=== PATIENT | female | born 1950 | race Caucasian/White ===

== ENCOUNTER → 2021-07-28 02:13 | Outpatient (CLI) | payer MEDICARE, SELFPAY ==
[2021-07-28 16:40] LABS: SARS-CoV-2 RNA PCR Negative
== END ==
PROVIDERS: PCP Internal Medicine; Visit Provider Internal Medicine
DX: J01.90 Acute sinusitis, unspecified (principal); Z20.822 Contact with and (suspected) exposure to COVID-19
CPT/HCPCS: C9803; U0003; U0005

== ENCOUNTER 2023-06-02 13:58 | Observation (INO) | payer MEDICARE, SELFPAY ==
[2023-06-02] VITALS (9 sets, daily range): BP systolic 107–156; BP diastolic 50–72; PULSE 71–90; RESP 15–30; TEMP 37.1–38.3; O2SAT 92–99; BMI 24.7
--- NOTE | ~2023-06-02 | CT_ITS ---
EXAMINATION: CT brain wo con DATE: 06/02/2023 15:26 INDICATION: syncope last week, unknown HI . TECHNIQUE: Computed tomography (CT) of the head was performed without intravenous contrast. The mA wa s adjusted according to patient size. Iterative reconstruction technique was employed. The dose-lengt h product was 605.33 mGy-cm. COMPARISON: None. FINDINGS: No acute intracranial hemorrhage or extra-axial fluid collection. No hydrocephalus, mass, or herniation. No acute ischemic infarct. Unremarkable dural venous sinus attenuation. No acute osseous abnormality. The aerated spaces are clear. Mild atrophy and chronic white matter change. Atherosclerotic intracranial calcification. IMPRESSION: No acute intracranial process. Reviewed, dictated and finalized at location K.
--- NOTE | ~2023-06-02 | CT_ITS ---
EXAMINATION: CT abdomen pelvis w con DATE: 06/02/2023 15:26 INDICATION: uti sx's, lower abd/back pain, fever TECHNIQUE: Computed tomography (CT) of the abdomen and pelvis was performed with 100 mL Omnipaque-350 intravenous contrast. Automated exposure control and iterative reconstruction technique were employe d. The dose-length product was 530.70 mGy-cm. COMPARISON: None. FINDINGS: Lower thorax: Unremarkable Liver: Normal. Biliary/Gallbladder: Gallbladder is normal. No bile duct dilation. Pancreas: No mass or duct dilation. Spleen: Normal. Adrenals:No mass. Kidneys: Subtle patchy areas of hypoenhancement bilaterally. Bilateral simple cysts and hypodensities that are too small to characterize but also likely represent cysts. Mild bilateral urothelial enhanc ement. GI tract: Small hiatal hernia. Mild distal esophageal and gastric wall edema. No small or large bowel dilation. Status post appendectomy. Diverticulosis without diverticulitis. Mesentery/Peritoneum: No ascites, mass, or free air. Retroperitoneum: No mass. Atherosclerotic abdominal aortic and/or arterial calcifications. 2.6 cm fus iform area of ectasia of the infrarenal abdominal aorta. Pelvis: Mild urinary bladder wall thickening/edema. Absent uterus. Bilateral ovaries not confidently identified. Soft Tissues: Soft tissues and body wall unremarkable. Bones: No acute osseous finding. IMPRESSION: Mild esophagitis/gastritis. Likely cystitis with possible ascending infection and bilateral pyelonephritis. Reviewed, dictated and finalized at location K.
--- NOTE | 2023-06-02 14:06 | ED.FEMALEGU ---
HPI - Female Genitourinary General Chief complaint: Urogenital-Female <Juju Tavera PA-C - Last Filed: 06/02/23 16:37> Stated complaint: uti, fever <Juju Tavera PA-C - Last Filed: 06/02/23 16:37> Time Seen by Provider: 06/02/23 14:02 <Juju Tavera PA-C - Last Filed: 06/02/23 16:37> Source: patient <SAHIL Blackwood Last Filed: 06/02/23 16:37> Mode of arrival: EMS <SAHIL Blackwood Last Filed: 06/02/23 16:37> Limitations: no limitations <SAHIL Blackwood Last Filed: 06/02/23 16:37> History of Present Illness HPI Narrative: Patient is a 72-year-old female who presents the ED via EMS with report of UTI sx's. Patient reports she was recently switched from Lasix to Sotagliflozin 2 weeks ago, 05/20, by her aircraft dispatcher d/t fluid around her heart. She began having urinary frequency, urgency, dysuria, lower abdominal pain/pressure later that week. Sx's have persisted. Patient reports worsening pain, pain across her lower back, continued urinary sx's, fatigue, weakness, chills/rigors, lightheadedness, nausea. Denies vomiting. Denies known fevers. She has not been evaluated for these symptoms. She does also admit that she had a syncopal episode last week and fell in her garage. Unknown HI/LOC. Denies injury from the episode. <Juju Tavera PA-C - Last Filed: 06/02/23 16:37> Related Data Allergies/Adverse reactions: Allergies Allergy/AdvReac Type Severity Reaction Status Date / Time codeine Allergy Unknown Unknown Verified 06/02/23 14:06 <SAHIL Blackwood Last Filed: 06/02/23 16:37> Review of Systems Review of Systems: CONSTITUTIONAL: See HPI. CARDIOVASCULAR: Denies chest pain. RESPIRATORY: Denies dyspnea. GASTROINTESTINAL: See HPI. GENITOURINARY: See HPI. MUSCULOSKELETAL: Reports lower back pain. NEUROLOGIC: See HPI. <Juju Tavera PA-C - Last Filed: 06/02/23 16:37> All systems reviewed & are unremarkable except as noted in HPI and below <Juju Tavera PA-C - Last Filed: 06/02/23 16:37> PMFSH Past Medical History Medical History: Medical History (Updated 06/02/23 @ 18:31 by Marilynn Trinidad PA-C) Anxiety Congestive heart failure Hyperlipidemia Hypertension <Juju Tavera PA-C - Last Filed: 06/02/23 16:37> Social History Social History: Social History (Updated 06/02/23 @ 18:20 by Marilynn Trinidad PA-C) Social History: Surrogate medical decision maker: Code status: Full code. <Juju Tavera PA-C - Last Filed: 06/02/23 16:37> Exam Narrative: GENERAL: Mildly ill appearing, well-nourished, non-toxic, in no acute distress. HEAD: Normocephalic, atraumatic. EYES: PERRL/EOMI NECK: Normal ROM, nonpainful. RESPIRATORY: Airway patent, respirations nonlabored. Clear to auscultation bilaterally, no rales, rhonchi, wheezing. CARDIOVASCULAR: Borderline tachycardic with regular rhythm without murmurs, rubs, or gallops. ABDOMINAL: Soft, diffuse tenderness throughout lower abdomen, nondistended. Normoactive BS. MUSCULOSKELETAL: Moves all extremities. No gross deformities. Tenderness throughout lumbar region. SKIN: Warm, dry, normal color. Mildly flushed appearing. NEURO: A&O X3. Speech clear. Cranial nerves II-XII grossly intact. Steady gait. No ataxic movements. No focal deficits. PSYCHIATRIC: Appropriate mood and affect. Normal interaction. <Juju Tavera PA-C - Last Filed: 06/02/23 16:37> Course JEWEL SAWYER/PA Physician Supervision For this patient encounter, I reviewed the JEWEL SAWYER or PA documentation, treatment plan, and medical decision making; and I had [id number] time with this patient. <Sterling Moe MD - Last Filed: 06/02/23 19:59> Vital Signs Vital signs: Vital Signs Temperature 101.0 F H 06/02/23 13:58 Pulse Rate 90 06/02/23 13:58 Respiratory Rate 22 H 06/02/23 13:58 Blood Pressure 156/72 H
[2023-06-02] MEDS: ONDANSETRON INJ 4 MG/2 ML VIAL IV PUSH ×2 (14:29→23:07)
[2023-06-02] MEDS: ACETAMINOPHEN 500 MG TABLET 1000 MG PO (14:29)
[2023-06-02] MEDS: SODIUM CHLORIDE 0.9% IV 1,000 ML 999 ML IV CONT (14:29)
[2023-06-02 14:30] LABS: Appearance Urine Clear (Clear); Bacteria Urine 2+ /hpf; Bilirubin Urine Negative (Negative); Blood Urine Non-Hemolyzed Trace (Negative); Color Urine Yellow (Yellow); Glucose Urine UA Negative (Negative); Ketones Urine Negative (Negative); Leukocyte Esterase Ur Trace LEU/UL (Negative); Nitrate Urine Negative (Negative); Non Pathogenic Casts 0-2; Protein Urine Negative (Negative); Specific Grav Ur 1.009 (1.001-1.035); Squamous Epithelial Cell Urine None Seen /hpf (Few); Urobilinogen Urine 0.2 mg/dL (<2.0)
[2023-06-02 14:51] LABS: Add Urine Microscopic? YES
[2023-06-02 14:56] LABS: Basophils Percent Auto 0.2 % (0.2-1.2); Eosinophils Percent Auto 0.4 % (0-4.4); Hematocrit 40.9 % (37.0-47.0); Hemoglobin 13.4 g/dL (12.0-15.0); Immature Granulocyte Absolute 0.02 K/mm3 (0.00-0.031); Immature Granulocyte Percent A 0.2 % (0-0.5); Lymphocytes Percent Auto 9.7 % (18.3-44.2); Mean Corpuscular HGB Conc 32.8 g/dl (32-36); Mean Corpuscular Hemoglobin 30.7 pg (26-34); Mean Corpuscular Volume 93.6 fl (80-100); Mean Platelet Volume 10.1 fl (7.4-10.4); Monocytes Absolute Auto 0.6 K/mm3 (0.1-0.6); Monocytes Percent Auto 7.2 % (2.6-8.5); Neutrophils Absolute Auto 6.8 K/mm3 (1.3-6.7); Neutrophils Percent Auto 82.3 % (45.5-73.1); Platelet Count Result 197 k/mm3 (150-375); Red Blood Count 4.37 M/mm3 (4.2-5.4); Red Cell Distribution Width 12.5 % (11.5-14.5); White Blood Count 8.2 K/mm3 (4.5-10.0)
[2023-06-02 15:06] LABS: Alanine Aminotransferase 16 U/L (6-35); Alkaline Phosphatase 61 U/L (38-126); Anion Gap 4 mmol/L (4-12); Aspartate Amino Transferase 21 U/L (14-36); Bilirubin,Total 0.7 mg/dL (0.2-1.3); Blood Urea Nitrogen 16 mg/dL (7-17); Carbon Dioxide 32 mmol/L (22-30); Chloride 98 mmol/L (98-107); Estimated CRCL calculation 55 ml/min; Estimated Glomerular Filt Rate > 60; Glucose 118 mg/dL (65-110); Potassium 4.2 mmol/L (3.4-5.0); Sodium 134 mmol/L (137-145)
--- NOTE | 2023-06-02 15:22 | PC.NURSE ---
Pt to CT scan via stretcher.
[2023-06-02 16:19] LABS: Influenza A QL RT-PCR Negative (Negative); Influenza B QL RT-PCR Negative (Negative); RSV RNA, RT-PCR Negative (Negative); SARS-CoV-2 RNA PCR Negative (Negative)
--- NOTE | 2023-06-02 18:11 | PM.IMHP ---
H&P: HPI History of Present Illness Date/Time: 06/02/23 18:30 Chief Complaint: Fever and urinary symptoms. Narrative: This is a 72-year-old female with hypertension, hyperlipidemia, congestive heart failure, and anxiety who presented to the emergency department via EMS from home for evaluation of fever and urinary symptoms. The patient provides the following history. She was started on sotagliflozin 2 weeks ago by her chlorine cells operator. Not long after starting the medication she developed urinary symptoms to include frequency, urgency, and dysuria. In the last week she developed pressure-like pain throughout her lower abdomen and lower back. She has since stopped taking drug but she continues feel poorly and is now weak, fatigued, nauseated, and is having episodes of chills/rigors. She also mentions having a syncopal episode last Saturday. She exited her garage to take out the trash and when she was walking back towards how she became extremely lightheaded and dizzy and woke up on the concrete in a supine position. She was lightheaded and dizzy for several minutes thereafter so she lay on the ground until the symptoms passed. Luckily she did not sustain any injuries. Since that time she has been wearing an event monitor ordered by her chlorine cells operator, Dr. Romero. Is my understanding that she had a recent stress test and echocardiogram which she believes were unchanged. She denies current lightheadedness, dizziness, cold and flu symptoms, chest pain, pleuritic pain, palpitations, vomiting, and diarrhea. In the ED: Temperature was 101 ? F on arrival with stable blood pressures. Labs were significant for WBC count of 8.2, hemoglobin 13.4, sodium 134, potassium 4.2, creatinine 0.70, lactic acid 1.0, glucose 118. Urine was positive for trace blood, 3 to 5 RBC, 11 to 20 WBC, trace leukocyte esterase, and 2+ bacteria. She was negative for influenza, RSV, and COVID. Brain CT showed no acute intracranial process. CT of the abdomen and pelvis showed mild esophagitis/gastritis and likely cystitis with possible ascending infection and bilateral pyelonephritis. She was given a dose of ceftriaxone and is being admitted in this setting for further treatment. Review of Systems Review of Systems: 12 systems were reviewed and are negative except for as per HPI. [facility] Past Medical History Medical History (Updated 06/02/23 @ 23:25 by Marilynn Trinidad PA-C) Anxiety Aortic aneurysm Congestive heart failure Gastroesophageal reflux disease Hyperlipidemia Hypertension Kidney stones Surgical History Surgical History (Updated 06/02/23 @ 23:25 by Marilynn Trinidad PA-C) History of bilateral cataract extraction History of bilateral knee arthroplasty History of cardiac catheterization History of colonoscopy with polypectomy Family History Family History (Updated 06/02/23 @ 23:25 by Marilynn Trinidad PA-C) Other Family history non-contributory Social History Social History (Updated 06/02/23 @ 23:26 by Marilynn Trinidad PA-C) Social History: Surrogate medical decision maker: Toña Hoskins, daughter. Code status: Full code. Smoking status: Former smoker Additional smoking assessment comments: quit 17 years ago Alcohol intake: never Substance use: never Do You Feel Safe in your Home?: Yes Lack of Transportation: No Lack of Food: Never True Current Housing: I Have Housing Concerned About Future Housing: No Difficulty Paying Gas/Electric Bills: No Difficulty Paying for Meds: No Currently Unemployed: No Education: High School Diploma/GED Difficulty w/ Childcare or Family Care: No Spiritual care concerns: No Meds Home Medications and Allergies Home Medications Medication Instructions Recorded Confirmed Type aspirin 81 mg tablet 81 mg PO DAILY 06/02/23 06/02/23 History atorvastatin 40 mg tablet 40 mg PO DAILY 06/02/23 06/02/23 History carvedilol 6.25 mg tablet 6.25 mg PO BID 06/02/23 06/02/23 History furosemide
--- NOTE | 2023-06-02 18:38 | ADMGEN ---
This patient, Lelo Pritchard, was admitted to Virtual Bed 3rd Floor-2. Patient/family oriented to hospital policies and general routines including ID bracelet, bed and alarms, visiting hours, pain management, procedures, bathroom and other care routines, personal items, smoking policy, room service/diet, and visiting hours. Information on how to activate the Rapid Response Team has been discussed. Patient/Family are encouraged to report perceived risks to care and to ask questions if they do not understand what they are told or what they should do.
--- NOTE | 2023-06-02 20:20 | ADMGEN ---
This patient, Lelo Pritchard, was admitted to Medical Room 252-01. Patient/family oriented to hospital policies and general routines including ID bracelet, bed and alarms, visiting hours, pain management, procedures, bathroom and other care routines, personal items, smoking policy, room service/diet, and visiting hours. Information on how to activate the Rapid Response Team has been discussed. Patient/Family are encouraged to report perceived risks to care and to ask questions if they do not understand what they are told or what they should do.
[2023-06-02] MEDS: ACETAMINOPHEN 325 MG TABLET 650 MG PO (23:10)
[2023-06-03 00:25] VITALS: PULSE 85
[2023-06-03] MEDS: SODIUM CHLORIDE 0.9% IV 500 ML 75 ML IV CONT (00:25)
[2023-06-03] MEDS: carvediloL 6.25 MG TABLET PO ×3 (00:25→21:07)
[2023-06-03 04:09] VITALS: BP 125/58; PULSE 77; RESP 17; TEMP 37.3; O2SAT 93
[2023-06-03 05:44] LABS: Basophils Percent Auto 0.3 % (0.2-1.2); Eosinophils Percent Auto 0.4 % (0-4.4); Hematocrit 37.4 % (37.0-47.0); Immature Granulocyte Absolute 0.03 K/mm3 (0.00-0.031); Immature Granulocyte Percent A 0.4 % (0-0.5); Lymphocytes Absolute Auto 1.24 K/mm3 (0.9-3.2); Lymphocytes Percent Auto 15.7 % (18.3-44.2); Mean Corpuscular HGB Conc 32.1 g/dl (32-36); Mean Corpuscular Hemoglobin 30.8 pg (26-34); Mean Corpuscular Volume 96.1 fl (80-100); Mean Platelet Volume 10.3 fl (7.4-10.4); Monocytes Absolute Auto 0.8 K/mm3 (0.1-0.6); Monocytes Percent Auto 10.4 % (2.6-8.5); Neutrophils Absolute Auto 5.8 K/mm3 (1.3-6.7); Neutrophils Percent Auto 72.8 % (45.5-73.1); Platelet Count Result 181 k/mm3 (150-375); Red Blood Count 3.89 M/mm3 (4.2-5.4); Red Cell Distribution Width 12.8 % (11.5-14.5); White Blood Count 7.9 K/mm3 (4.5-10.0)
[2023-06-03 05:52] LABS: Anion Gap 2 mmol/L (4-12); Blood Urea Nitrogen 16 mg/dL (7-17); Calcium 8.6 mg/dL (8.4-10.2); Carbon Dioxide 31 mmol/L (22-30); Chloride 102 mmol/L (98-107); Estimated CRCL calculation 55 ml/min; Estimated Glomerular Filt Rate > 60; Glucose 112 mg/dL (65-110); Magnesium 2.3 mg/dL (1.6-2.3); Potassium 4.3 mmol/L (3.4-5.0); Sodium 135 mmol/L (137-145)
[2023-06-03] MEDS: ENOXAPARIN 40 MG/0.4 ML SYRINGE SUB-Q (08:20)
[2023-06-03] MEDS: FUROSEMIDE 20 MG TABLET PO (08:20)
[2023-06-03] MEDS: MULTIVITAMINS /C LUTEIN (CENTRUM SILVER) TABLET *BKC 1 TAB PO (08:20)
[2023-06-03] MEDS: ASPIRIN 81 MG ENTERIC TABLET PO (08:20)
[2023-06-03] MEDS: ATORVASTATIN 40 MG TABLET PO (08:20)
[2023-06-03] MEDS: SERTRALINE HCL 50 MG TABLET PO (08:20)
[2023-06-03] MEDS: LOSARTAN POTASSIUM 25 MG TABLET PO (08:20)
[2023-06-03] MEDS: ACETAMINOPHEN 325 MG TABLET 650 MG PO ×2 (08:22→13:06)
--- NOTE | 2023-06-03 09:59 | PM.IMPN ---
Progress Note: A&P Assessment and Plan (1) Sepsis: Code(s): A41.9 - Sepsis, unspecified organism Status: Acute Assessment and Plan: 06/03/23: Patient meeting sepsis criteria with a heart rate of 90, respiratory rate of 24, temp of 101?, and known source of infection UTI She received 1.5 L normal saline while in the ED Blood in urine cultures were obtained and are pending Patient was started on Rocephin UA showing trace leukocytes, 3-5 urine RBCs, 11-20 urine wbc's, 2+ bacteria White blood cell count and lactic acid were both normal (2) Urinary tract infection: Qualifiers: Urinary tract infection type: acute pyelonephritis Qualified Code(s): N10 - Acute pyelonephritis Code(s): N39.0 - Urinary tract infection, site not specified Status: Acute Assessment and Plan: 06/03/23: UA showing trace leukocytes, 3-5 urine RBCs, 11-20 urine wbc's, 2+ urine bacteria. Blood and urine cultures were obtained and are pending Continue Rocephin (3) Pyelonephritis: Code(s): N12 - Tubulo-interstitial nephritis, not specified as acute or chronic Status: Acute Assessment and Plan: 06/03/23: CT of the abdomen pelvis revealing mild esophagitis/gastritis, likely cystitis with possible ascending infection and bilateral pyelonephritis See above plan of care (4) Congestive heart failure: Code(s): I50.9 - Heart failure, unspecified Status: Acute Assessment and Plan: 06/03/23: Continue Coreg and Lasix (5) Hypertension: Code(s): I10 - Essential (primary) hypertension Status: Acute Assessment and Plan: 06/03/23: Blood pressure ranging 107/60 to 127/50 Continue losartan (6) Hyperlipidemia: Code(s): E78.5 - Hyperlipidemia, unspecified Status: Acute Assessment and Plan: 06/03/23: Continue atorvastatin (7) Anxiety: Code(s): F41.9 - Anxiety disorder, unspecified Status: Acute Assessment and Plan: 06/03/23: Continue Zoloft Time Spent With Patient Time with patient: Greater than 35 minutes Subjective Date/time seen: 06/03/23 09:59 Interval history: This is a 72-year-old female who presented to the hospital on 06/02/2023 with complaints of fever and urinary symptoms. Workup in the hospital included a head CT which was negative. Abdomen/pelvis CT which shown mild esophagitis/gastritis, likely cystitis with possible ascending infection and bilateral pyelonephritis. Initial labs showed a normal white count of 8.2, sodium 34. UA was obtained which shown trace leukocytes, 3-5 urine RBCs, 11-20 urine wbc's, 2+ bacteria. Respiratory panel was negative for influenza a and B, RSV, COVID. Blood and urine cultures were obtained and are pending. Patient received 1.5 L normal saline, Zofran, Tylenol, and Rocephin while in the ED. patient originally meeting sepsis criteria with a temp of 101.0?, heart rate of 90, respiratory rate 22, known source infection UTI. Patient reported chills, fatigue, lightheadedness, dizziness, nausea over the past few days. Today she states she is feeling a much better. She denies any fever, nausea, vomiting, diarrhea, chest pain, shortness a breath, abdominal pain. Review of Systems Review of Systems: 12 systems were reviewed and are negative except for as per HPI. Constitutional: Constitutional: Reports as per HPI and Reports no additional constitutional complaints Eyes: Eyes: Reports as per HPI and Reports no additional eye complaints ENT: Reports system reviewed and no additional complaints, except as documented and Reports as per HPI Cardiovascular: Cardiovascular: Reports as per HPI and Reports no additional cardiovascular complaints Respiratory: Respiratory: Reports as per HPI and Reports no additional respiratory complaints Gastrointestinal: Gastrointestinal: Reports as per HPI and Reports no additional gastrointestinal complaints Genitourinary: Genitourinary: Reports
[2023-06-03 15:21] VITALS: BP 130/63; PULSE 69; RESP 16; TEMP 37.2; O2SAT 96
[2023-06-03 19:40] VITALS: BP 153/64; PULSE 88; RESP 17; TEMP 37.2; O2SAT 100
[2023-06-03] MEDS: PANTOPRAZOLE 40 MG TABLET PO (19:47)
[2023-06-03 21:07] VITALS: PULSE 88
[2023-06-04 04:14] VITALS: BP 140/62; PULSE 69; RESP 17; TEMP 36.8; O2SAT 93
--- NOTE | 2023-06-04 07:41 | P.PNIM_ITS ---
Progress Note: A&P Assessment and Plan (1) Sepsis: Code(s): A41.9 - Sepsis, unspecified organism Status: Acute Assessment and Plan: 06/03/23: * Patient meeting sepsis criteria with a heart rate of 90, respiratory rate of 24, temp of 101?, and known source of infection UTI * She received 1.5 L normal saline while in the ED * Blood in urine cultures were obtained and are pending * Patient was started on Rocephin * UA showing trace leukocytes, 3-5 urine RBCs, 11-20 urine wbc's, 2+ bacteria * White blood cell count and lactic acid were both normal 06/04/23: * Blood culture showing no growth today * Urine cultures pending * Continue with Rocephin * Low-grade temp overnight (2) Urinary tract infection: Qualifiers: Urinary tract infection type: acute pyelonephritis Qualified Code(s): N10 - Acute pyelonephritis Code(s): N39.0 - Urinary tract infection, site not specified Status: Acute Assessment and Plan: 06/03/23: * UA showing trace leukocytes, 3-5 urine RBCs, 11-20 urine wbc's, 2+ urine bacteria. * Blood and urine cultures were obtained and are pending * Continue Rocephin 06/04/23: * Blood culture showing no growth today on preliminary read * Urine cultures still pending * Continue Rocephin (3) Pyelonephritis: Code(s): N12 - Tubulo-interstitial nephritis, not specified as acute or chronic Status: Acute Assessment and Plan: 06/03/23: * CT of the abdomen pelvis revealing mild esophagitis/gastritis, likely cystitis with possible ascending infection and bilateral pyelonephritis * See above plan of care 06/04/23: * No change (4) Congestive heart failure: Code(s): I50.9 - Heart failure, unspecified Status: Acute Assessment and Plan: 06/03/23: * Continue Coreg and Lasix 06/04/23: * No change to current treatment plan (5) Hypertension: Code(s): I10 - Essential (primary) hypertension Status: Acute Assessment and Plan: 06/03/23: * Blood pressure ranging 107/60 to 127/50 * Continue losartan 06/04/23: * No change to current treatment plan (6) Hyperlipidemia: Code(s): E78.5 - Hyperlipidemia, unspecified Status: Acute Assessment and Plan: 06/03/23: * Continue atorvastatin 06/04/23: * No change to current treatment plan (7) Anxiety: Code(s): F41.9 - Anxiety disorder, unspecified Status: Acute Assessment and Plan: 06/03/23: * Continue Zoloft 06/04/23: * No change to current treatment plan Time Spent With Patient Time with patient: 25 - 35 minutes Subjective Date/time seen: 06/04/23 07:41 Interval history: 06/03/23: This is a 72-year-old female who presented to the hospital on 06/02/2023 with complaints of fever and urinary symptoms. Workup in the hospital included a head CT which was negative. Abdomen/pelvis CT which shown mild esophagitis/gastritis, likely cystitis with possible ascending infection and bilateral pyelonephritis. Initial labs showed a normal white count of 8.2, sodium 34. UA was obtained which shown trace leukocytes, 3-5 urine RBCs, 11-20 urine wbc's, 2+ bacteria. Respiratory panel was negative for influenza a and B, RSV, COVID. Blood and urine cultures were obtained and are pending. Patient received 1.5 L normal saline, Zofran, Tylenol, and Rocephin while in the ED. patient originally meeting sepsis criteria with a temp of 101.0?, heart rate of 90, respiratory rate 22, known source infection UTI. Patient reported chills, fatigue, lightheadedness, diz
--- NOTE | 2023-06-04 07:41 | PM.IMPN ---
Progress Note: A&P Assessment and Plan (1) Sepsis: Code(s): A41.9 - Sepsis, unspecified organism Status: Acute Assessment and Plan: 06/03/23: Patient meeting sepsis criteria with a heart rate of 90, respiratory rate of 24, temp of 101?, and known source of infection UTI She received 1.5 L normal saline while in the ED Blood in urine cultures were obtained and are pending Patient was started on Rocephin UA showing trace leukocytes, 3-5 urine RBCs, 11-20 urine wbc's, 2+ bacteria White blood cell count and lactic acid were both normal 06/04/23: Blood culture showing no growth today Urine cultures pending Continue with Rocephin Low-grade temp overnight (2) Urinary tract infection: Qualifiers: Urinary tract infection type: acute pyelonephritis Qualified Code(s): N10 - Acute pyelonephritis Code(s): N39.0 - Urinary tract infection, site not specified Status: Acute Assessment and Plan: 06/03/23: UA showing trace leukocytes, 3-5 urine RBCs, 11-20 urine wbc's, 2+ urine bacteria. Blood and urine cultures were obtained and are pending Continue Rocephin 06/04/23: Blood culture showing no growth today on preliminary read Urine cultures still pending Continue Rocephin (3) Pyelonephritis: Code(s): N12 - Tubulo-interstitial nephritis, not specified as acute or chronic Status: Acute Assessment and Plan: 06/03/23: CT of the abdomen pelvis revealing mild esophagitis/gastritis, likely cystitis with possible ascending infection and bilateral pyelonephritis See above plan of care 06/04/23: No change (4) Congestive heart failure: Code(s): I50.9 - Heart failure, unspecified Status: Acute Assessment and Plan: 06/03/23: Continue Coreg and Lasix 06/04/23: No change to current treatment plan (5) Hypertension: Code(s): I10 - Essential (primary) hypertension Status: Acute Assessment and Plan: 06/03/23: Blood pressure ranging 107/60 to 127/50 Continue losartan 06/04/23: No change to current treatment plan (6) Hyperlipidemia: Code(s): E78.5 - Hyperlipidemia, unspecified Status: Acute Assessment and Plan: 4/8/24: Continue atorvastatin 06/04/23: No change to current treatment plan (7) Anxiety: Code(s): F41.9 - Anxiety disorder, unspecified Status: Acute Assessment and Plan: 06/03/23: Continue Zoloft 06/04/23: No change to current treatment plan Time Spent With Patient Time with patient: 25 - 35 minutes Subjective Date/time seen: 06/04/23 07:41 Interval history: 06/03/23: This is a 72-year-old female who presented to the hospital on 06/02/2023 with complaints of fever and urinary symptoms. Workup in the hospital included a head CT which was negative. Abdomen/pelvis CT which shown mild esophagitis/gastritis, likely cystitis with possible ascending infection and bilateral pyelonephritis. Initial labs showed a normal white count of 8.2, sodium 34. UA was obtained which shown trace leukocytes, 3-5 urine RBCs, 11-20 urine wbc's, 2+ bacteria. Respiratory panel was negative for influenza a and B, RSV, COVID. Blood and urine cultures were obtained and are pending. Patient received 1.5 L normal saline, Zofran, Tylenol, and Rocephin while in the ED. patient originally meeting sepsis criteria with a temp of 101.0?, heart rate of 90, respiratory rate 22, known source infection UTI. Patient reported chills, fatigue, lightheadedness, dizziness, nausea over the past few days. Today she states she is feeling a much better. She denies any fever, nausea, vomiting, diarrhea, chest pain, shortness a breath, abdominal pain. 06/04/23: Patient states that she had a pretty restless night and did not sleep very well. She also reports that she woke up drenched in sweat. She did run a low-grade tab overnight. Review of Systems Review of Systems: 12 systems were reviewed and are negative except for
[2023-06-04] MEDS: ASPIRIN 81 MG ENTERIC TABLET PO (08:57)
[2023-06-04 08:58] VITALS: PULSE 86
[2023-06-04] MEDS: FUROSEMIDE 20 MG TABLET PO (08:58)
[2023-06-04] MEDS: carvediloL 6.25 MG TABLET PO ×2 (08:58→20:32)
[2023-06-04] MEDS: LOSARTAN POTASSIUM 25 MG TABLET PO (08:58)
[2023-06-04] MEDS: ATORVASTATIN 40 MG TABLET PO (08:58)
[2023-06-04] MEDS: ENOXAPARIN 40 MG/0.4 ML SYRINGE SUB-Q (08:58)
[2023-06-04] MEDS: SERTRALINE HCL 50 MG TABLET PO (08:59)
[2023-06-04] MEDS: MULTIVITAMINS /C LUTEIN (CENTRUM SILVER) TABLET *BKC 1 TAB PO (08:59)
[2023-06-04 09:12] LABS: Basophils Percent Auto 0.4 % (0.2-1.2); Eosinophils Absolute Auto 0.1 K/mm3 (0-0.3); Eosinophils Percent Auto 2.3 % (0-4.4); Hematocrit 40.5 % (37.0-47.0); Hemoglobin 12.5 g/dL (12.0-15.0); Immature Granulocyte Absolute 0.02 K/mm3 (0.00-0.031); Immature Granulocyte Percent A 0.4 % (0-0.5); Lymphocytes Absolute Auto 1.17 K/mm3 (0.9-3.2); Lymphocytes Percent Auto 22.5 % (18.3-44.2); Mean Corpuscular HGB Conc 30.9 g/dl (32-36); Mean Corpuscular Hemoglobin 30.5 pg (26-34); Mean Corpuscular Volume 98.8 fl (80-100); Mean Platelet Volume 10.5 fl (7.4-10.4); Monocytes Absolute Auto 0.5 K/mm3 (0.1-0.6); Neutrophils Absolute Auto 3.4 K/mm3 (1.3-6.7); Neutrophils Percent Auto 64.4 % (45.5-73.1); Platelet Count Result 200 k/mm3 (150-375); Red Cell Distribution Width 12.6 % (11.5-14.5); White Blood Count 5.2 K/mm3 (4.5-10.0)
[2023-06-04 09:24] LABS: Alanine Aminotransferase 15 U/L (6-35); Albumin Level 3.5 g/dL (3.5-5.1); Alkaline Phosphatase 55 U/L (38-126); Anion Gap 3 mmol/L (4-12); Aspartate Amino Transferase 19 U/L (14-36); Bilirubin,Total 0.5 mg/dL (0.2-1.3); Blood Urea Nitrogen 13 mg/dL (7-17); Calcium 9.1 mg/dL (8.4-10.2); Carbon Dioxide 31 mmol/L (22-30); Chloride 104 mmol/L (98-107); Estimated CRCL calculation 63 ml/min; Estimated Glomerular Filt Rate > 60; Glucose 89 mg/dL (65-110); Potassium 4.1 mmol/L (3.4-5.0); Sodium 138 mmol/L (137-145)
--- NOTE | 2023-06-04 14:36 | PCCCNOTE ---
On 06/04/23, the student, Geetha Low, provided care and completed [facility] documentation on this patient. I have reviewed the student's documentation and agree with the findings.
[2023-06-04 15:27] VITALS: BP 126/59; PULSE 71; RESP 16; TEMP 36.6; O2SAT 97
[2023-06-04 19:54] VITALS: PULSE 71; RESP 16; O2SAT 97
[2023-06-04] MEDS: MELATONIN 5 MG TABLET PO (20:32)
[2023-06-04 22:00] VITALS: BP 161/73; PULSE 84; RESP 18; TEMP 37.8; O2SAT 96
[2023-06-05 05:02] VITALS: BP 164/79; PULSE 95; RESP 19; TEMP 36.8; O2SAT 95
[2023-06-05 05:06] LABS: Basophils Percent Auto 0.6 % (0.2-1.2); Eosinophils Absolute Auto 0.2 K/mm3 (0-0.3); Eosinophils Percent Auto 4.5 % (0-4.4); Hematocrit 36.9 % (37.0-47.0); Hemoglobin 12.1 g/dL (12.0-15.0); Immature Granulocyte Absolute 0.02 K/mm3 (0.00-0.031); Immature Granulocyte Percent A 0.4 % (0-0.5); Lymphocytes Absolute Auto 1.51 K/mm3 (0.9-3.2); Lymphocytes Percent Auto 28.4 % (18.3-44.2); Mean Corpuscular HGB Conc 32.8 g/dl (32-36); Mean Corpuscular Hemoglobin 31.6 pg (26-34); Mean Corpuscular Volume 96.3 fl (80-100); Mean Platelet Volume 10.5 fl (7.4-10.4); Monocytes Absolute Auto 0.7 K/mm3 (0.1-0.6); Monocytes Percent Auto 12.6 % (2.6-8.5); Neutrophils Absolute Auto 2.8 K/mm3 (1.3-6.7); Neutrophils Percent Auto 53.5 % (45.5-73.1); Platelet Count Result 225 k/mm3 (150-375); Red Blood Count 3.83 M/mm3 (4.2-5.4); Red Cell Distribution Width 12.5 % (11.5-14.5); White Blood Count 5.3 K/mm3 (4.5-10.0)
[2023-06-05 05:23] LABS: Alanine Aminotransferase 15 U/L (6-35); Albumin Level 3.4 g/dL (3.5-5.1); Alkaline Phosphatase 54 U/L (38-126); Anion Gap 3 mmol/L (4-12); Aspartate Amino Transferase 19 U/L (14-36); Bilirubin,Total 0.3 mg/dL (0.2-1.3); Blood Urea Nitrogen 16 mg/dL (7-17); Calcium 8.8 mg/dL (8.4-10.2); Carbon Dioxide 29 mmol/L (22-30); Chloride 104 mmol/L (98-107); Estimated CRCL calculation 63 ml/min; Estimated Glomerular Filt Rate > 60; Glucose 102 mg/dL (65-110); Potassium 4.1 mmol/L (3.4-5.0); Sodium 136 mmol/L (137-145)
--- NOTE | 2023-06-05 07:49 | P.PNIM_ITS ---
Progress Note: A&P Assessment and Plan (1) Sepsis: Code(s): A41.9 - Sepsis, unspecified organism Status: Acute Assessment and Plan: 06/03/23: * Patient meeting sepsis criteria with a heart rate of 90, respiratory rate of 24, temp of 101?, and known source of infection UTI * She received 1.5 L normal saline while in the ED * Blood in urine cultures were obtained and are pending * Patient was started on Rocephin * UA showing trace leukocytes, 3-5 urine RBCs, 11-20 urine wbc's, 2+ bacteria * White blood cell count and lactic acid were both normal 06/04/23: * Blood culture showing no growth today * Urine cultures pending * Continue with Rocephin * Low-grade temp overnight 06/05/23: * Blood culture showing no growth today on preliminary * Urine culture showing E coli * Continue with Rocephin * Remains with a low-grade through the night (2) Urinary tract infection: Qualifiers: Urinary tract infection type: acute pyelonephritis Qualified Code(s): N10 - Acute pyelonephritis Code(s): N39.0 - Urinary tract infection, site not specified Status: Acute Assessment and Plan: 06/03/23: * UA showing trace leukocytes, 3-5 urine RBCs, 11-20 urine wbc's, 2+ urine bacteria. * Blood and urine cultures were obtained and are pending * Continue Rocephin 06/04/23: * Blood culture showing no growth today on preliminary read * Urine cultures still pending * Continue Rocephin 06/05/2023: * Blood culture showing no growth to date on preliminary * Urine culture showing E coli on preliminary read * Patient is on Rocephin (3) Pyelonephritis: Code(s): N12 - Tubulo-interstitial nephritis, not specified as acute or chronic Status: Acute Assessment and Plan: 06/03/23: * CT of the abdomen pelvis revealing mild esophagitis/gastritis, likely cystitis with possible ascending infection and bilateral pyelonephritis * See above plan of care 06/04/23: * No change (4) Congestive heart failure: Code(s): I50.9 - Heart failure, unspecified Status: Acute Assessment and Plan: 06/03/23: * Continue Coreg and Lasix 06/04/23: * No change to current treatment plan (5) Hypertension: Code(s): I10 - Essential (primary) hypertension Status: Acute Assessment and Plan: 06/03/23: * Blood pressure ranging 107/60 to 127/50 * Continue losartan 06/04/23: * No change to current treatment plan (6) Hyperlipidemia: Code(s): E78.5 - Hyperlipidemia, unspecified Status: Acute Assessment and Plan: 06/03/23: * Continue atorvastatin 06/04/23: * No change to current treatment plan (7) Anxiety: Code(s): F41.9 - Anxiety disorder, unspecified Status: Acute Assessment and Plan: 06/03/23: * Continue Zoloft 06/04/23: * No change to current treatment plan Subjective Date/time seen: 06/05/23 07:49 Interval history: 06/03/23: This is a 72-year-old female who presented to the hospital on 06/02/2023 with complaints of fever and urinary symptoms. Workup in the hospital included a head CT which was negative. Abdomen/pelvis CT which shown mild esophagitis/gastritis, likely cystitis with possible ascending infection and bilateral pyelonephritis. Initial labs showed a normal white count of 8.2, sodium 34. UA was obtained which shown trace leukocytes, 3-5 urine RBCs, 11-20 urine wbc's, 2+ bacteria. Respiratory panel was negative for influenza a and B, RSV, COVID. Blood and urine cultures were obtained and are p
--- NOTE | 2023-06-05 07:49 | PM.IMPN ---
Progress Note: A&P Assessment and Plan (1) Sepsis: Code(s): A41.9 - Sepsis, unspecified organism Status: Acute Assessment and Plan: 06/03/23: Patient meeting sepsis criteria with a heart rate of 90, respiratory rate of 24, temp of 101?, and known source of infection UTI She received 1.5 L normal saline while in the ED Blood in urine cultures were obtained and are pending Patient was started on Rocephin UA showing trace leukocytes, 3-5 urine RBCs, 11-20 urine wbc's, 2+ bacteria White blood cell count and lactic acid were both normal 06/04/23: Blood culture showing no growth today Urine cultures pending Continue with Rocephin Low-grade temp overnight 06/05/23: Blood culture showing no growth today on preliminary Urine culture showing E coli Continue with Rocephin Remains with a low-grade through the night (2) Urinary tract infection: Qualifiers: Urinary tract infection type: acute pyelonephritis Qualified Code(s): N10 - Acute pyelonephritis Code(s): N39.0 - Urinary tract infection, site not specified Status: Acute Assessment and Plan: 06/03/23: UA showing trace leukocytes, 3-5 urine RBCs, 11-20 urine wbc's, 2+ urine bacteria. Blood and urine cultures were obtained and are pending Continue Rocephin 06/04/23: Blood culture showing no growth today on preliminary read Urine cultures still pending Continue Rocephin 06/05/2023: Blood culture showing no growth to date on preliminary Urine culture showing E coli on preliminary read Patient is on Rocephin (3) Pyelonephritis: Code(s): N12 - Tubulo-interstitial nephritis, not specified as acute or chronic Status: Acute Assessment and Plan: 06/03/23: CT of the abdomen pelvis revealing mild esophagitis/gastritis, likely cystitis with possible ascending infection and bilateral pyelonephritis See above plan of care 06/04/23: No change (4) Congestive heart failure: Code(s): I50.9 - Heart failure, unspecified Status: Acute Assessment and Plan: 06/03/23: Continue Coreg and Lasix 06/04/23: No change to current treatment plan (5) Hypertension: Code(s): I10 - Essential (primary) hypertension Status: Acute Assessment and Plan: 06/03/23: Blood pressure ranging 107/60 to 127/50 Continue losartan 06/04/23: No change to current treatment plan (6) Hyperlipidemia: Code(s): E78.5 - Hyperlipidemia, unspecified Status: Acute Assessment and Plan: 06/03/23: Continue atorvastatin 06/04/23: No change to current treatment plan (7) Anxiety: Code(s): F41.9 - Anxiety disorder, unspecified Status: Acute Assessment and Plan: 06/03/23: Continue Zoloft 06/04/23: No change to current treatment plan Subjective Date/time seen: 06/05/23 07:49 Interval history: 06/03/23: This is a 72-year-old female who presented to the hospital on 06/02/2023 with complaints of fever and urinary symptoms. Workup in the hospital included a head CT which was negative. Abdomen/pelvis CT which shown mild esophagitis/gastritis, likely cystitis with possible ascending infection and bilateral pyelonephritis. Initial labs showed a normal white count of 8.2, sodium 34. UA was obtained which shown trace leukocytes, 3-5 urine RBCs, 11-20 urine wbc's, 2+ bacteria. Respiratory panel was negative for influenza a and B, RSV, COVID. Blood and urine cultures were obtained and are pending. Patient received 1.5 L normal saline, Zofran, Tylenol, and Rocephin while in the ED. patient originally meeting sepsis criteria with a temp of 101.0?, heart rate of 90, respiratory rate 22, known source infection UTI. Patient reported chills, fatigue, lightheadedness, dizziness, nausea over the past few days. Today she states she is feeling a much better. She denies any fever, nausea, vomiting, diarrhea, chest pain, shortness a breath, abdominal pain. 06/04/23: Patient states that
[2023-06-05] MEDS: ASPIRIN 81 MG ENTERIC TABLET PO (08:18)
[2023-06-05] MEDS: LOSARTAN POTASSIUM 25 MG TABLET PO (08:18)
[2023-06-05] MEDS: MULTIVITAMINS /C LUTEIN (CENTRUM SILVER) TABLET *BKC 1 TAB PO (08:18)
[2023-06-05] MEDS: FUROSEMIDE 20 MG TABLET PO (08:18)
[2023-06-05 08:19] VITALS: BP 150/78; PULSE 72; O2SAT 95
[2023-06-05] MEDS: ATORVASTATIN 40 MG TABLET PO (08:19)
[2023-06-05] MEDS: carvediloL 6.25 MG TABLET PO (08:19)
[2023-06-05] MEDS: SERTRALINE HCL 50 MG TABLET PO (08:19)
[2023-06-05] MEDS: ENOXAPARIN 40 MG/0.4 ML SYRINGE SUB-Q (08:19)
[2023-06-05] MEDS: SULFAMETHOXAZOLE/TRIMETHOPRIM 800/160 MG DS TABLET 1 TAB PO (12:32)
--- NOTE | 2023-06-05 12:32 | PM.DS ---
DS: Admitting Diagnosis Discharge Date 06/05/23 Admitting Diagnosis Urinary tract infection Pyelonephritis CHF Hypertension Hyperlipidemia Anxiety DS: Summary Hospital Course Reason for hospitalization: Urinary tract infection Pyelonephritis CHF Hypertension Hyperlipidemia Anxiety Hospital Course: 06/03/23: This is a 72-year-old female who presented to the hospital on 06/02/2023 with complaints of fever and urinary symptoms.? Workup in the hospital included a head CT which was negative.? Abdomen/pelvis CT which shown mild esophagitis/gastritis, likely cystitis with possible ascending infection and bilateral pyelonephritis.? Initial labs showed a normal white count of 8.2, sodium 34.? UA was obtained which shown trace leukocytes, 3-5 urine RBCs, 11-20 urine wbc's, 2+ bacteria.? Respiratory panel was negative for influenza a and B, RSV, COVID.? Blood and urine cultures were obtained and are pending.? Patient received 1.5 L normal saline, Zofran, Tylenol, and Rocephin while in the ED. patient originally meeting sepsis criteria with a temp of 101.0?, heart rate of 90, respiratory rate 22, known source infection UTI.? Patient reported chills, fatigue, lightheadedness, dizziness, nausea over the past few days.? Today she states she is feeling a much better.? She denies any fever, nausea, vomiting, diarrhea, chest pain, shortness a breath, abdominal pain. 06/04/23: Patient states that she had a pretty restless night and did not sleep very well.? She also reports that she woke up drenched in sweat.? She did run a low-grade tab overnight. 06/05/23: Labs today shown a a sodium level of 136, otherwise unremarkable.? Blood culture showing no growth to date on preliminary read.? Urine culture showing E coli. Patient was started on Bactrim. She is stable for discharge today. She will need follow-up with her primary care physician in 1 week. Final diagnosis: Acute Pyelonephritis, urinary tract infection Status at Discharge Cognitive/behavioral status at discharge: Alert and Oriented x4 Functional status at discharge: independent ambulation Overall status at discharge: patient is progressing back to baseline Time Spent with Patient Time attestation: Total time spent providing and/or coordinating discharge services: Time spent: Greater than 30 minutes Exam Narrative: General: In no acute distress, well nourished Head: atraumatic, no encephalopathy Eyes: EOMI, PERRLA, sclera clear ENT: moist mucous membranes, nasal passages clear Neck: supple, no JVD, no adenopathy, trachea midline Cardiac: Normal S1 and S2. RRR,? No murmur, gallops or friction rubs, peripheral pulses intact. Respiratory: Lungs clear to auscultation, no adventitious lung sounds, currently on room air Gastrointestinal: soft, non-distended, non-tender, normoactive bowel sounds. : voiding without difficulty Extremities: moves all extremities well, no edema Skin: clean, dry, intact. No wounds or lesions. Neuro: Alert and oriented x4, cranial nerves intact, no neuro deficits. Psych: normal mood, normal affect, interactive DS: Data Data Completed and Pending Completed studies during hospitalization: Head CT Abdomen pelvis CT Pending studies at discharge: Blood cultures Labs on day of discharge: Labs from last 24 hours 06/05/23 04:37 WBC 5.3 RBC 3.83 L Hgb 12.1 Hct 36.9 L MCV 96.3 MCH 31.6 MCHC 32.8 RDW 12.5 Plt Count 225 MPV 10.5 H Immature Gran % (Auto) 0.4 Neut % (Auto) 53.5 Lymph % (Auto) 28.4 Dickens % (Auto) 12.6 H Eos % (Auto) 4.5 H Baso % (Auto) 0.6 Lymph # (Auto) 1.51 Dickens # (Auto) 0.7 H Eos # (Auto) 0.2 Baso # (Auto) 0.0 Abs Immat Gran (auto) 0.02 Absolute Neuts (auto) 2.8 Absolute Nucleated RBC 0.000 Nucleated RBC % 0.0 Sodium 136 L Potassium 4.1 Chloride 104 Carbon Dioxide 29 Anion Gap 3 L BUN 16 Creatinine 0.60 L Estim Creat Clear Calc 63 Estimated GFR > 60 Glucose 102 Calcium 8.8 Total Bilirubin 0.3
[2023-06-05 14:20] VITALS: BP 121/61; PULSE 73; RESP 16; TEMP 36.8; O2SAT 98
== END 2023-06-05 15:15 | disposition home or self-care (01) ==
LOC: ANHED 16:37 → ANH3MEDSUR 19:25 → ANH2MED 20:53 → ANH3MEDSUR 06-06 07:39
PROVIDERS: Nurse Practitioner Acute Care; Physician Assistant; Admitting Provider Internal Medicine; Emergency Provider Physician Assistant; PCP Internal Medicine; Visit Provider Internal Medicine
DX: A41.9 Sepsis, unspecified organism (principal); N10 Acute pyelonephritis; N39.0 Urinary tract infection, site not specified; B96.20 Unspecified Escherichia coli [E. coli] as the cause of diseases classified elsewhere; I11.0 Hypertensive heart disease with heart failure; I50.9 Heart failure, unspecified; E78.5 Hyperlipidemia, unspecified; F41.9 Anxiety disorder, unspecified; K21.9 Gastro-esophageal reflux disease without esophagitis; Z20.822 Contact with and (suspected) exposure to COVID-19; Z96.653 Presence of artificial knee joint, bilateral; Z87.891 Personal history of nicotine dependence; Z79.82 Long term (current) use of aspirin; Z79.899 Other long term (current) drug therapy
CPT/HCPCS: 36415; 70450; 74177; 80048; 80053; 81001; 83605; 83735; 85025; 87040; 87077; 87086; 87186; 87637; 96361; 96365; 96372; 96375; 96376; 99285; A9270; G0378; J0696; J1650; J2405; J7030; J7040; Q9967

== ENCOUNTER 2023-06-21 16:56 | Emergency (ER) | payer MEDICARE, SELFPAY ==
[2023-06-21] VITALS (7 sets, daily range): BP systolic 133–180; BP diastolic 65–94; PULSE 82–94; RESP 14–20; TEMP 37.1; O2SAT 93–100
--- NOTE | ~2023-06-21 | CT_ITS ---
EXAMINATION: CT abdomen pelvis w con DATE: 06/21/2023 19:25 INDICATION: Abdominal pain, nausea, vomiting and diarrhea TECHNIQUE: Computed tomography (CT) of the abdomen and pelvis was performed with 100 mL Omnipaque-350 intravenous contrast. Automated exposure control and iterative reconstruction technique were employe d. The dose-length product was 412.92 mGy-cm. COMPARISON: None FINDINGS: Lung bases are clear. Heart size is normal. No pericardial or pleural effusion. Small sliding-type hi atal hernia. Gallbladder is dilated but without evident cholelithiasis, wall thickening or pericholec ystic inflammatory stranding to suggest acute cholecystitis. Liver, spleen, pancreas and bilateral ad renal glands are normal. There are bilateral low-attenuation renal cysts the largest on the right kim suring 1.7 cm. There are small regions of decreased parenchymal enhancement extending peripherally ac ross the cortex in both kidneys suspicious for bilateral pyelonephritis. Multiple diverticula along t he sigmoid colon without adjacent from trace stranding to suggest diverticulitis. The colon at the ju nction of the descending and sigmoid colon extends into a small fat-containing left lower quadrant sp igelian hernia. No bowel obstruction. There is fluid in the distal small bowel and proximal colon con sistent with provided history of diarrhea. Suture line at the tip the cecum consistent with prior mare endectomy. Small fat-containing umbilical hernia. Bladder is normal. The uterus is not identified and has likely been surgically resected. Bilateral adnexa are unremarkable. No free intraperitoneal gas or fluid. No pathologically enlarged abdominal or pelvic lymphadenopathy. There is calcified atherosc lerosis of the aorta and many of the other arteries. Severe lumbar spondylosis. IMPRESSION: 1. Wedge-shaped regions of decreased parenchymal enhancement in both kidneys suspicious for bilateral pyelonephritis. Correlate with urinalysis. 2. Nonspecific diarrhea. 3. Short segment of the colon at the junction of the descending and sigmoid colon extends into a smal l left lower quadrant spigelian hernia. No bowel obstruction. Reviewed, dictated and finalized at location A. IMPRESSION: 1. Wedge-shaped regions of decreased parenchymal enhancement in both kidneys payne spicious for bilateral pyelonephritis. Correlate with urinalysis. 2. Nonspecific diarrhea. 3. Short segment of the colon at the junction of the descending and sigmoid col on extends into a small left lower quadrant spigelian hernia. No bowel obstruct ion.
[2023-06-21 17:59] LABS: Basophils Percent Auto 0.2 % (0.2-1.2); Hematocrit 39.4 % (37.0-47.0); Hemoglobin 12.7 g/dL (12.0-15.0); Immature Granulocyte Absolute 0.02 K/mm3 (0.00-0.031); Immature Granulocyte Percent A 0.3 % (0-0.5); Lymphocytes Absolute Auto 0.91 K/mm3 (0.9-3.2); Lymphocytes Percent Auto 14.1 % (18.3-44.2); Mean Corpuscular HGB Conc 32.2 g/dl (32-36); Mean Corpuscular Hemoglobin 30.7 pg (26-34); Mean Corpuscular Volume 95.2 fl (80-100); Mean Platelet Volume 10.7 fl (7.4-10.4); Monocytes Absolute Auto 0.5 K/mm3 (0.1-0.6); Monocytes Percent Auto 7.4 % (2.6-8.5); Platelet Count Result 211 k/mm3 (150-375); Red Blood Count 4.14 M/mm3 (4.2-5.4); Red Cell Distribution Width 13.5 % (11.5-14.5); White Blood Count 6.5 K/mm3 (4.5-10.0)
--- NOTE | 2023-06-21 18:04 | ED.NAVMDI ---
HPI - Nausea/Vomiting/Diarrhea General Chief complaint: Nausea/Vomiting/Diarrhea Stated complaint: n/v/d Time Seen by Provider: 06/21/23 17:21 Source: patient Mode of arrival: EMS Limitations: no limitations History of Present Illness HPI Narrative: This is a 72-year-old female that presents to the emergency department for nausea, vomiting and ongoing since yesterday. Reports she has not been able to keep anything down. Presented to the ER for possible dehydration. Denies fevers, dysuria, or hematuria. Related Data Home Medications Medication Instructions Recorded Confirmed aspirin 81 mg tablet 81 mg PO DAILY 06/02/23 06/02/23 atorvastatin 40 mg tablet 40 mg PO DAILY 06/02/23 06/02/23 carvedilol 6.25 mg tablet 6.25 mg PO BID 06/02/23 06/02/23 furosemide 20 mg tablet 20 mg PO DAILY 06/02/23 06/02/23 losartan 25 mg tablet 25 mg PO DAILY 06/02/23 06/02/23 multivit with minerals-iron 18 1 tablet PO DAILY 06/02/23 06/02/23 mg-folic ac 400 mcg-vit K 25 mcg tablet (Adults Multivitamin) omeprazole 20 mg capsule,delayed 20 mg PO DAILY PRN Gastric Reflux 06/02/23 06/02/23 release sertraline 50 mg tablet 50 mg PO DAILY 06/02/23 06/02/23 Allergies Allergy/AdvReac Type Severity Reaction Status Date / Time codeine Allergy Unknown Unknown Verified 06/02/23 14:06 Review of Systems Review of Systems: CONSTITUTIONAL: Denies fever GASTROINTESTINAL: Reports abdominal pain, nausea, vomiting, and diarrhea. GENITOURINARY: Denies dysuria or hematuria. All systems reviewed & are unremarkable except as noted in HPI and below [facility] Past Medical History Medical History (Updated 06/21/23 @ 20:48 by Aviva Maradiaga PA-C) Anxiety Aortic aneurysm Congestive heart failure Gastroesophageal reflux disease Hyperlipidemia Hypertension Kidney stones Surgical History Surgical History (Updated 06/02/23 @ 23:25 by Marilynn Trinidad PA-C) History of bilateral cataract extraction History of bilateral knee arthroplasty History of cardiac catheterization History of colonoscopy with polypectomy Family History Family History (Updated 06/02/23 @ 23:25 by Marilynn Trinidad PA-C) Other Family history non-contributory Social History Social History (Updated 06/02/23 @ 23:26 by Marilynn Trinidad PA-C) Social History: Surrogate medical decision maker: Toña Hoskins, daughter. Code status: Full code. Smoking status: Former smoker Additional smoking assessment comments: quit 17 years ago Alcohol intake: never Substance use: never Do You Feel Safe in your Home?: Yes Lack of Transportation: No Lack of Food: Never True Current Housing: I Have Housing Concerned About Future Housing: No Difficulty Paying Gas/Electric Bills: No Difficulty Paying for Meds: No Currently Unemployed: No Education: High School Diploma/GED Difficulty w/ Childcare or Family Care: No Spiritual care concerns: No Exam Narrative: GENERAL: Elderly, well-nourished, and in no acute distress. HEAD: Normocephalic, atraumatic. EYES: EOMI. ENT: Mucous membranes moist. Oropharynx without tonsillar hypertrophy exudate or other lesions. NECK: Supple. No adenopathy or masses. CHEST: Clear to auscultation. No respiratory distress. No wheezes rales or rhonchi HEART: Regular rate and rhythm. No murmur heard. Normal peripheral pulses. ABDOMEN: Soft, nontender, nondistended, normal active bowel sounds. EXTREMITIES: Normal range of motion. No edema. SKIN: Warm, dry, no rash. NEURO: No focal deficits. Alert and oriented x3. PSYCH: Normal mood and affect Course Course Emergency Course: Patient updated on her workup. Reports feeling much better. Tolerated PO challenge. Ready for discharge Vital Signs Vital signs: Vital Signs Temperature 98.7 F 06/21/23 16:59 Pulse Rate 87 06/21/23 16:59 Respiratory Rate 16 06/21/23 16:59 Blood Pressure 133/65 06/21/23 16:59 Pulse Oximetry 96 06/21/23 16:59
[2023-06-21] MEDS: ONDANSETRON INJ 4 MG/2 ML VIAL IV PUSH (18:09)
[2023-06-21] MEDS: SODIUM CHLORIDE 0.9% IV 500 ML 999 ML IV CONT (18:09)
[2023-06-21] MEDS: FAMOTIDINE 20 MG/2 ML VIAL IV PUSH (18:09)
[2023-06-21 18:20] LABS: Alanine Aminotransferase 40 U/L (6-35); Alkaline Phosphatase 56 U/L (38-126); Anion Gap 5 mmol/L (4-12); Aspartate Amino Transferase 49 U/L (14-36); Bilirubin,Total 0.5 mg/dL (0.2-1.3); Blood Urea Nitrogen 17 mg/dL (7-17); Calcium 8.9 mg/dL (8.4-10.2); Carbon Dioxide 26 mmol/L (22-30); Chloride 106 mmol/L (98-107); Estimated CRCL calculation 297 ml/min; Estimated Glomerular Filt Rate > 60; Glucose 120 mg/dL (65-110); Lipase 47 U/L (23-300); Potassium 3.4 mmol/L (3.4-5.0); Sodium 137 mmol/L (137-145)
[2023-06-21 18:47] LABS: Influenza A QL RT-PCR Negative (Negative); Influenza B QL RT-PCR Negative (Negative); SARS-CoV-2 RNA PCR Negative (Negative)
[2023-06-21 18:55] LABS: Appearance Urine Clear (Clear); Bacteria Urine None Seen /hpf; Bilirubin Urine Negative (Negative); Blood Urine Non-Hemolyzed Trace (Negative); Color Urine Yellow (Yellow); Glucose Urine UA Negative (Negative); Ketones Urine Negative (Negative); Leukocyte Esterase Ur Negative LEU/UL (Negative); Nitrate Urine Negative (Negative); Non Pathogenic Casts 0-2; Protein Urine 1+ mg/dL (Negative); Specific Grav Ur 1.024 (1.001-1.035); Squamous Epithelial Cell Urine None Seen /hpf (Few); WBC Urine 0-5 /hpf (0-3)
[2023-06-21 18:59] LABS: Add Urine Microscopic? YES
[2023-06-21] MEDS: ACETAMINOPHEN 500 MG TABLET 1000 MG PO (19:58)
== END 2023-06-21 20:58 | disposition home or self-care (01) ==
PROVIDERS: Emergency Provider Physician Assistant; PCP Internal Medicine
DX: K52.9 Noninfective gastroenteritis and colitis, unspecified (principal); K43.9 Ventral hernia without obstruction or gangrene; R74.01 Elevation of levels of liver transaminase levels; I50.9 Heart failure, unspecified; I11.0 Hypertensive heart disease with heart failure; E78.5 Hyperlipidemia, unspecified; K21.9 Gastro-esophageal reflux disease without esophagitis; F41.9 Anxiety disorder, unspecified; Z87.442 Personal history of urinary calculi; Z98.42 Cataract extraction status, left eye; Z98.41 Cataract extraction status, right eye; Z96.653 Presence of artificial knee joint, bilateral; Z86.010 Personal history of colon polyps; Z87.891 Personal history of nicotine dependence
CPT/HCPCS: 36415; 74177; 80053; 81001; 83690; 85025; 87636; 96361; 96374; 96375; 99284; A9270; J2405; J7040; Q9967

== ENCOUNTER 2023-08-16 12:17 | Outpatient (CLI) | payer MEDICARE, SELFPAY ==
[2023-08-16 14:52] LABS: Hepatitis C Virus Antibody Reactive (Negative)
[2023-08-19 14:53] LABS: Hepatitis C RNA, Quant PCR <15 NOT DETECTED IU/mL (NOT DETECTED)
[2023-08-23 15:29] LABS: HCV Genotype, LiPA NOT DETECTED
== END 2023-08-16 12:18 | disposition home or self-care (01) ==
PROVIDERS: PCP Internal Medicine; Visit Provider Nurse Practitioner Family
DX: B19.20 Unspecified viral hepatitis C without hepatic coma (principal)
CPT/HCPCS: 36415; 86803; 87522; 87902

== ENCOUNTER 2023-09-20 14:05 | Outpatient (CLI) | payer MEDICARE, SELFPAY ==
--- NOTE | ~2023-09-20 | XR_ITS ---
EXAM: XR abdomen/kub 1V DATE: 09/20/2023 14:26 HISTORY: LOW LEFT ABD PAIN, HERNIA, GAS PAINS AND CONSTIPATION . COMPARISON: CT abdomen pelvis 06/21/2023. FINDINGS: Clear lung bases. Normal bowel gas pattern. No organomegaly. No abnormal abdominal calcifi cation. Multilevel lumbar degenerative disc disease. Bilateral hip osteoarthritis. IMPRESSION: Unremarkable abdominal radiograph findings. Reviewed, dictated and finalized at location K.
== END 2023-09-20 14:06 | disposition home or self-care (01) ==
PROVIDERS: PCP Internal Medicine; Visit Provider Nurse Practitioner Family
DX: K59.09 Other constipation (principal)
CPT/HCPCS: 74018

== ENCOUNTER 2023-10-29 00:26 | Day surgery (SDC) | payer MEDICARE, SELFPAY ==
[2023-10-11 10:46] VITALS: BMI 25.1
[2023-10-29 07:29] VITALS: BP 143/71; PULSE 72; RESP 18; TEMP 35.6; O2SAT 98
[2023-10-29] MEDS: LACTATED RINGERS 1,000 ML 150 ML IV CONT (07:39)
--- NOTE | 2023-10-29 07:41 | WPDANESEPPF ---
Anes - Initial Pre Proc Eval Procedure: Operation Date: 10/29/23 08:30 Proposed Procedures p Esophagogastroduodenoscopy & Colonoscopy - Robert Saunders MD Date/Time: 10/29/23 07:41 Surgeon: Robert Saunders MD Pre Op Diagnosis: Unspecified viral hepatitis C without hepatic coma Patient Data Age: 73 Gender: F Height: 1.66 m Weight: 67.5 kg Last Vital Signs Temp 96.1 F L 10/29/23 07:29 Pulse 72 10/29/23 07:29 Resp 18 10/29/23 07:29 BP 143/71 H 10/29/23 07:29 Pulse Ox 98 10/29/23 07:29 O2 Del Method Room Air 10/29/23 07:29 Allergies Allergy/AdvReac Type Severity Reaction Status Date / Time codeine Allergy Intermediate Itching Verified 10/29/23 07:28 Home Medications Medication Instructions Recorded Confirmed Type aspirin 81 mg tablet 81 mg PO DAILY 06/02/23 10/29/23 History atorvastatin 40 mg tablet 40 mg PO DAILY 06/02/23 10/29/23 History carvedilol 6.25 mg tablet 6.25 mg PO BID 06/02/23 10/29/23 History furosemide 20 mg tablet 20 mg PO DAILY 06/02/23 10/29/23 History losartan 25 mg tablet 25 mg PO DAILY 06/02/23 10/29/23 History multivit with minerals-iron 18 1 tablet PO DAILY 06/02/23 10/29/23 History mg-folic ac 400 mcg-vit K 25 mcg tablet (Adults Multivitamin) sertraline 50 mg tablet 50 mg PO DAILY 06/02/23 10/29/23 History dicyclomine 10 mg capsule 10 mg PO BID PRN abdominal pain 09/23/23 10/29/23 Rx #60 caps Senokot Dietary Supp 2 gummy PO PRN PRN Constipation 10/11/23 10/11/23 History omeprazole 20 mg tablet,delayed 40 mg PO DAILY 10/11/23 10/29/23 History release Patient hx anesthesia problems: none Family hx anesthesia problems: none Results Review: All pre-operative results and documents have been reviewed as part of the pre-operative evaluation. [facility] Past Medical History Medical History Anxiety Aortic aneurysm Congestive heart failure Gastroesophageal reflux disease Hyperlipidemia Hypertension Kidney stones Surgical History Surgical History History of bilateral cataract extraction History of bilateral knee arthroplasty History of cardiac catheterization History of colonoscopy with polypectomy Family History Family History Other Family history non-contributory Social History Social History Social History: Surrogate medical decision maker: Toña Hoskins, daughter. Code status: Full code. Smoking packs per day: 1 Smoking cigarettes per day: 20.0 Years smoked: 30 Smoking pack-years: 30.00 Smoking status: Former smoker Tobacco type: cigarettes Additional smoking assessment comments: quit 17 years ago Alcohol intake: current Substance use: former Substance use type: marijuana Do You Feel Safe in your Home?: Yes Lack of Transportation: No Lack of Food: Never True Current Housing: I Have Housing Concerned About Future Housing: No Difficulty Paying Gas/Electric Bills: No Difficulty Paying for Meds: No Currently Unemployed: No Education: High School Diploma/GED Difficulty w/ Childcare or Family Care: No Living arrangements: with family Spiritual care concerns: No Anes - Eval Final PreProcedure Day of Procedure 10/29/23 07:41 Patient weight: normal Heart: regular rate and rhythm Lungs: clear to auscultation Airway: Mallampati scale class II Neurological: alert and oriented Last oral intake: >/= 8 hours ASA classification: III Emergent: no Anesthetic plan: proceed Anesthesia type and monitoring: general GIVS and standard monitoring Results Review: All pre-operative results and documents have been reviewed as part of the pre-operative evaluation. Informed Consent: The patient's anesthetic plan and its attendant risks and benefits wer
--- NOTE | 2023-10-29 07:52 | PM.HPGS ---
History of Present Illness History of Present Illness Consent: Risks, benefits, and alternatives have been discussed and questions answered. Patient agrees to proceed with procedure. Chief complaint: Unspecified viral hepatitis C without hepatic coma Narrative: Lelo Pritchard is a 73 year old female here for egd and colonoscopy, using ppi as needed and sometimes choking sensation after eating, last colonoscopy 2016, h/o diverticulitis and constipation with pain in llq Review of Systems Review of Systems: All systems reviewed & are unremarkable except as noted in HPI and below PMFSH Past Medical History Medical History (Updated 10/29/23 @ 07:55 by Robert Saunders MD) Anxiety Aortic aneurysm Congestive heart failure Gastroesophageal reflux disease Hyperlipidemia Hypertension Kidney stones Surgical History Surgical History History of bilateral cataract extraction History of bilateral knee arthroplasty History of cardiac catheterization History of colonoscopy with polypectomy Family History Family History Other Family history non-contributory Social History Social History Social History: Surrogate medical decision maker: Toña Lopezr, daughter. Code status: Full code. Smoking packs per day: 1 Smoking cigarettes per day: 20.0 Years smoked: 30 Smoking pack-years: 30.00 Smoking status: Former smoker Tobacco type: cigarettes Additional smoking assessment comments: quit 17 years ago Alcohol intake: current Substance use: former Substance use type: marijuana Do You Feel Safe in your Home?: Yes Lack of Transportation: No Lack of Food: Never True Current Housing: I Have Housing Concerned About Future Housing: No Difficulty Paying Gas/Electric Bills: No Difficulty Paying for Meds: No Currently Unemployed: No Education: High School Diploma/GED Difficulty w/ Childcare or Family Care: No Living arrangements: with family Spiritual care concerns: No Meds Home Medications and Allergies Home Medications Medication Instructions Recorded Confirmed Type aspirin 81 mg tablet 81 mg PO DAILY 06/02/23 10/29/23 History atorvastatin 40 mg tablet 40 mg PO DAILY 06/02/23 10/29/23 History carvedilol 6.25 mg tablet 6.25 mg PO BID 06/02/23 10/29/23 History furosemide 20 mg tablet 20 mg PO DAILY 06/02/23 10/29/23 History losartan 25 mg tablet 25 mg PO DAILY 06/02/23 10/29/23 History multivit with minerals-iron 18 1 tablet PO DAILY 06/02/23 10/29/23 History mg-folic ac 400 mcg-vit K 25 mcg tablet (Adults Multivitamin) sertraline 50 mg tablet 50 mg PO DAILY 06/02/23 10/29/23 History dicyclomine 10 mg capsule 10 mg PO BID PRN abdominal pain 09/23/23 10/29/23 Rx #60 caps Senokot Dietary Supp 2 gummy PO PRN PRN Constipation 10/11/23 10/11/23 History omeprazole 20 mg tablet,delayed 40 mg PO DAILY 10/11/23 10/29/23 History release Allergies Allergy/AdvReac Type Severity Reaction Status Date / Time codeine Allergy Intermediate Itching Verified 10/29/23 07:28 Vital Signs Vital Signs - 24 hr 10/29/23 07:29 Temperature 96.1 F L Pulse Rate 72 Respiratory Rate 18 Blood Pressure 143/71 H Pulse Oximetry 98 Oxygen Delivery Room Air Exam Const: General: comfortable and no acute distress HENMT: Face/Nose/Sinus: Normal nares present Eyes: General: appearance normal, both eyes and all related structures Neck: Neck: no JVD Resp: Auscultation: clear to auscultation bilaterally Cardio: Rate: regular rate Rhythm: regular rhythm GI: Inspection: non-distended GI Palp: Yes Soft to palpation Skin: General skin exam: normal color Neuro: General: gait normal Speech: normal speech Extrem: General: normal to inspection Psych: Mental Status: mental status grossly normal
--- NOTE | 2023-10-29 08:08 | SUR.OPER ---
EGD: [id number] COLON: Start 08
[2023-10-29 08:24] VITALS: BP 123/82; PULSE 72; RESP 18; O2SAT 100
[2023-10-29 08:34] VITALS: BP 163/86; PULSE 67; RESP 18; O2SAT 98
[2023-10-29 08:44] VITALS: BP 179/73; PULSE 65; RESP 18; O2SAT 95
== END 2023-10-29 09:03 | disposition home or self-care (01) ==
PROVIDERS: PCP Internal Medicine; Referring Provider Nurse Practitioner Family; Visit Provider Internal Medicine Gastroenterology
PROC: 0DJ08ZZ Inspection of Upper Intestinal Tract, Via Natural or Artificial Opening Endoscopic (ICD-10-PCS; CPT 43235; principal; 2023-10-29 08:30)
DX: K29.50 Unspecified chronic gastritis without bleeding (principal); K21.00 Gastro-esophageal reflux disease with esophagitis, without bleeding; K63.5 Polyp of colon; K57.30 Diverticulosis of large intestine without perforation or abscess without bleeding; K64.8 Other hemorrhoids; K59.09 Other constipation; B19.20 Unspecified viral hepatitis C without hepatic coma; I11.0 Hypertensive heart disease with heart failure; I50.9 Heart failure, unspecified; E78.5 Hyperlipidemia, unspecified; I71.40 Abdominal aortic aneurysm, without rupture, unspecified; Z79.82 Long term (current) use of aspirin; Z87.891 Personal history of nicotine dependence
CPT/HCPCS: 45385; 43239; 88305; J2704; J7120